=== PATIENT | female | born 1930 | race Caucasian/White ===

== ENCOUNTER 2019-01-20 13:04 | Inpatient (IN) | payer OTHER ==
[~2019-01-20] VITALS: Ht 162.6 cm; Wt 74.8 kg
[2019-01-20 13:10] VITALS: BP 140/120
[2019-01-20 13:47] LABS: ABSOLUTE BASOPHILS 0.1 thou/uL (0.0-0.2); ABSOLUTE EOSINOPHILS 0.3 thou/uL (0.0-0.7); ABSOLUTE LYMPHOCYTES 1.8 thou/uL (0.8-5.3); ABSOLUTE MONOCYTES 0.5 thou/uL (0.0-1.2); ABSOLUTE NEUTROPHILS 6.5 thou/uL (1.6-8.1); BASOPHILS 1.2 %; EOSINOPHILS 3.2 %; HEMOGLOBIN 14.4 gm/dL (12.0-15.0); LYMPHOCYTES 19.3 %; MCH 30.8 pg (26.0-34.0); MCHC 33.4 g/dL (28.0-37.0); MCV 92.2 fL (80.0-100.0); MONOCYTES 5.8 %; NUCLEATED RBCS 0 /100WBC; PLATELET COUNT* 311 thou/uL (150-400); POLYS 70.5 %; RBC 4.67 mil/uL (4.20-5.00); RDW-CV 14.9 % (10.5-14.5); WBC 9.2 thou/uL (4.0-11.0)
[2019-01-20 13:56] LABS: ANION GAP 10 mmol/L (7-16); BUN 14 mg/dL (7-18); CALCIUM 9.4 mg/dL (8.5-10.1); CHLORIDE 105 mmol/L (98-107); CO2 31 mmol/L (21-32); CREATININE 0.9 mg/dL (0.6-1.3); GLUCOSE 106 mg/dL (70-99); SODIUM 146 mmol/L (136-145)
[2019-01-20 13:59] LABS: POTASSIUM 2.7 mmol/L (3.5-5.1)
[2019-01-20 14:14] LABS: ALBUMIN 3.5 g/dL (3.4-5.0); ALKALINE PHOSPHATASE 120 U/L (46-116); NT-PRO BRAIN NAT PEPTIDE 322 pg/mL (<300); SGOT 22 U/L (15-37); SGPT 23 U/L (30-65); TOTAL BILIRUBIN 0.5 mg/dL (<0.1-1.0); TOTAL PROTEIN 7.1 g/dL (6.4-8.2); TROPONIN-I LEVEL <0.06 ng/mL (<0.06)
[2019-01-20 15:46] VITALS: BP 142/62
[2019-01-20 16:45] VITALS: BP 159/79
--- NOTE | 2019-01-20 17:35 | NUR ---
PATIENT ARRIVED FROM ER THIS EVENING PER CART WITH A HISTORY OF FREQUENT COUGH AND SOA. PATIENT IS ALERT ORIENTED TO PERSON AND YEAR. HER FAMILY IS IN AT THE BEDSIDE. PATIENT PLACED ON TELE MONITOR. ORIENTED TO ROOM AND PROCEDURES. BED ALARM PLACED ON. PATIENT EDUCATED ON FALL PRECAUTIONS. TELE SHOWS SR WITH PVCS. IV POTASSIUM REPLACEMENT CONTINUED FROM ER. DINNER ORDERED FOR PATIENT. PATIENT REPORTS A HISTORY OF ETOH INTAKE. WILL CONTINUE TO MONITOR PATIENT SAFETY. CALL LIGHT IS IN REACH.
[2019-01-20] MEDS ORDERED: AMLODIPINE BESY10 MG PO (17:47)
[2019-01-20] MEDS ORDERED: LOSARTAN POTASS50 MG PO (17:49)
[2019-01-20] MEDS ORDERED: ARIMIDEX1 MG PO (17:52)
[2019-01-20] MEDS ORDERED: ZOLOFT100 MG PO (17:53)
[2019-01-20] MEDS ORDERED: LIPITOR40 MG PO (17:54)
[2019-01-20] MEDS ORDERED: UNICOMPLEX M TA1 TA1 PO (17:55)
[2019-01-20 20:00] VITALS: BP 175/75
[2019-01-21] VITALS: BP 190/87
[2019-01-21 04:00] VITALS: BP 125/85; BP 170/84
--- NOTE | 2019-01-21 05:02 | NUR ---
ASSUMED PT CARE AT APPROX 1930. PT IS AWAKE AND ORIENTED X3-4, FORGETFUL AT TIMES. PROFESSOR OF LEGAL STUDIES IN PLACE TRACING SR/SB. ASSESSMENT DONE AND CHARTED.ELECTROLYTE REPLETION IN PROGRESS. PT DENIES PAIN OF THIS SHIFT. CALL LIGHT WITHIN REACH. FALL PRECAUTIONS IN PLACE. HOURLY ROUNDING DONE FOR PT SAFETY.
[2019-01-21 05:31] LABS: ABSOLUTE BASOPHILS 0.1 thou/uL (0.0-0.2); ABSOLUTE EOSINOPHILS 0.1 thou/uL (0.0-0.7); ABSOLUTE LYMPHOCYTES 1.3 thou/uL (0.8-5.3); ABSOLUTE MONOCYTES 0.6 thou/uL (0.0-1.2); ABSOLUTE NEUTROPHILS 9.1 thou/uL (1.6-8.1); BASOPHILS 0.6 %; EOSINOPHILS 0.7 %; HEMATOCRIT 39.2 % (37.0-47.0); HEMOGLOBIN 12.9 gm/dL (12.0-15.0); LYMPHOCYTES 11.8 %; MCH 30.5 pg (26.0-34.0); MCV 92.3 fL (80.0-100.0); MONOCYTES 5.6 %; MPV 9.2 fl. (7.2-11.1); NUCLEATED RBCS 0 /100WBC; PLATELET COUNT* 315 thou/uL (150-400); POLYS 81.3 %; RBC 4.25 mil/uL (4.20-5.00); RDW-CV 14.9 % (10.5-14.5); WBC 11.1 thou/uL (4.0-11.0)
[2019-01-21 05:38] LABS: CALCIUM 8.7 mg/dL (8.5-10.1); CREATININE 0.8 mg/dL (0.6-1.3); MAGNESIUM 2.1 mg/dL (1.8-2.4)
[2019-01-21 09:32] VITALS: BP 159/76
[2019-01-21 11:13] VITALS: BP 183/78
[2019-01-21 15:32] VITALS: BP 148/54
--- NOTE | 2019-01-21 17:19 | NUR ---
ASSUMED CARE OF PATIENT THIS AM AT 0730. PATIENT IS ALERT AND ORIENTED X 4. SHE DENIES PAIN, DISCOMFORT, AND NAUSEA. TELE SHOWS NSR THIS AM. PATIENT ASSISTED UP TO THE BATHROOM WITH WALKER AND STANDBY ASSIST. SHE WAS KEPT NPO THIS AM FOR CT SCAN. PATIENT TAKEN TO CT PER W/C AND RETURNED TO THE ROOM. POTASSIUM REPLACEMENT CONTINUED TODAY. IV FLUIDS CONTINUED PER ORDER. PATIENT'S APPETITE CONTINUES POOR. RESTING IN BED AT THIS TIME. BED ALARM IS ON AND CALL LIGHT IN IN REACH. HER FAMILY WAS AT THE BEDSIDE OFF AND ON TODAY. HER BLOOD PRESSURE WAS ELEVATED PRIOR TO HER MEDICATION THIS AM.
[2019-01-21 20:00] VITALS: BP 122/60
[2019-01-22] VITALS: BP 147/64
[2019-01-22 04:00] VITALS: BP 166/71
[2019-01-22 04:52] LABS: ABSOLUTE BASOPHILS 0.1 thou/uL (0.0-0.2); ABSOLUTE EOSINOPHILS 0.3 thou/uL (0.0-0.7); ABSOLUTE LYMPHOCYTES 2.1 thou/uL (0.8-5.3); ABSOLUTE MONOCYTES 0.6 thou/uL (0.0-1.2); ABSOLUTE NEUTROPHILS 6.6 thou/uL (1.6-8.1); BASOPHILS 0.7 %; EOSINOPHILS 3.3 %; HEMATOCRIT 33.8 % (37.0-47.0); HEMOGLOBIN 11.3 gm/dL (12.0-15.0); LYMPHOCYTES 21.7 %; MCH 31.4 pg (26.0-34.0); MCHC 33.3 g/dL (28.0-37.0); MCV 94.3 fL (80.0-100.0); MONOCYTES 6.4 %; MPV 9.2 fl. (7.2-11.1); NUCLEATED RBCS 0 /100WBC; PLATELET COUNT* 261 thou/uL (150-400); POLYS 67.9 %; RBC 3.59 mil/uL (4.20-5.00); WBC 9.8 thou/uL (4.0-11.0)
[2019-01-22 05:08] LABS: CALCIUM 7.6 mg/dL (8.5-10.1); CREATININE 0.8 mg/dL (0.6-1.3); POTASSIUM 4.5 mmol/L (3.5-5.1)
--- NOTE | 2019-01-22 05:11 | NUR ---
RECEIVED REPORT AND ASSUMED CARE OF PATIENT APPROX 193. PATIENT HAS BEEN PROGRESSING TOWARDS GOALS: PATIENT STATES SHE "FEELS BETTER COMPARED TO YESTERDAY." NO OBVIOUS SIGNS OF ALCOHOL WITHDRAW. ELECTROLYTES WNL. CALL LIGHT WITHIN REACH
[2019-01-22 08:00] VITALS: BP 148/65
[2019-01-22 12:00] VITALS: BP 169/66
--- NOTE | 2019-01-22 14:44 | EKG ---
[place] [address] ELECTROCARDIOGRAM REPORT Name: SARAHY SHEETS Room: [address] ADM IN 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
--- NOTE | 2019-01-22 14:50 | NUR ---
MET WITH PT AND RAYRAY/ZENIA WHO IS A NURSE. PT LIVES ALONE. STATES SHE STRUGGLES TO GET AROUND, USES WALKER. HASN'T HAD HH. DOES HAVE A AUBREE WHO SHOPS. PT USES SHOWER BENCH ALSO. DOESN'T COOK MUCH. RAYRAY VOICED CONCERNS ABOUT PT BEING ALONE AND RECENT ILLNES, PT AND FAMILY INTERESTED IN SNF AND WANT [facility]. AWAITING THERAPY EVALS. CALLED AND FAXED REFERRAL TO [facility], AWAIT CALL BACK
[2019-01-22 16:00] VITALS: BP 162/51
[2019-01-22 16:36] LABS: URINE BILIRUBIN NEGATIVE (Negative); URINE BLOOD NEGATIVE (Negative); URINE CLARITY CLOUDY; URINE COLOR YELLOW; URINE GLUCOSE-RANDOM NEGATIVE (Negative); URINE KETONES NEGATIVE (Negative); URINE LEUKOCYTES-REFLEX 1+ (Negative); URINE PROTEIN TRACE (Negative); URINE SPECIFIC GRAVITY 1.025 (1.005-1.030); URINE UROBILINOGEN 0.2 E.U./dl (0.2-1.0)
[2019-01-22 16:37] LABS: URINE NITRITE-REFLEX POSITIVE (Negative)
[2019-01-22 16:57] LABS: SQUAMOUS >10 Many /LPF (0-3)
[2019-01-22 16:58] LABS: BACTERIA-REFLEX >30 Many /HPF (None Seen); URINE WBC-REFLEX 6-15 Few /HPF (0-5)
[2019-01-22 16:59] LABS: HYALINE CASTS 0-3 Few /LPF (None Seen)
[2019-01-22 17:01] LABS: MUCUS 0-3 Light strn/LPF (None Seen)
[2019-01-22 17:02] LABS: CRYSTALS None Seen /LPF (None Seen); URINE RBC None Seen /HPF (0-2)
--- NOTE | 2019-01-22 18:58 | NUR ---
ASSUMED PT CARE REPORT RECEIVED FROM NURSE. PT IS AOX4. FORGETFUL. ON RA. IV FLUID STOPPED. NO COMPLAINT FROM PT. NURSE INFORMED PT FAMILY ABOUT PROCESS OF CARE. OT EVALUATION PERFORMED IN PT ROOM. URINE SAMPLE SENT TO LAB ORDERED. ONCOLOGY CONSULTED. PT UP WITH ASSISTANCE AND WALKER. FALL PRECAUTION IN PLACE. WILL CONTINUE TO MONITOR
[2019-01-22 20:00] VITALS: BP 141/56
[2019-01-23] VITALS: BP 179/73
[2019-01-23 04:00] VITALS: BP 163/70
[2019-01-23 05:15] LABS: ABSOLUTE BASOPHILS 0.1 thou/uL (0.0-0.2); ABSOLUTE EOSINOPHILS 0.3 thou/uL (0.0-0.7); ABSOLUTE LYMPHOCYTES 1.5 thou/uL (0.8-5.3); ABSOLUTE MONOCYTES 0.7 thou/uL (0.0-1.2); ABSOLUTE NEUTROPHILS 7.4 thou/uL (1.6-8.1); BASOPHILS 0.5 %; EOSINOPHILS 3.2 %; HEMATOCRIT 38.4 % (37.0-47.0); HEMOGLOBIN 12.5 gm/dL (12.0-15.0); LYMPHOCYTES 14.8 %; MCH 30.6 pg (26.0-34.0); MCHC 32.5 g/dL (28.0-37.0); MCV 94.2 fL (80.0-100.0); MONOCYTES 7.2 %; MPV 9.3 fl. (7.2-11.1); NUCLEATED RBCS 0 /100WBC; PLATELET COUNT* 264 thou/uL (150-400); POLYS 74.3 %; RBC 4.08 mil/uL (4.20-5.00); RDW-CV 14.8 % (10.5-14.5); WBC 9.9 thou/uL (4.0-11.0)
[2019-01-23 05:29] LABS: CALCIUM 8.2 mg/dL (8.5-10.1); CREATININE 0.8 mg/dL (0.6-1.3)
--- NOTE | 2019-01-23 05:32 | NUR ---
PT CARE ASSUMED AT 1930. SAT MAINTAINED IN RA. ALERT AND ORIENTED X4, FORGETFUL AT TIMES. PT HAD FREQUENCY AND URGENCY OF URINATION. CALL LIGHT WITHIN REACH AND BED IN LOW POSITION. PT IS IMPULSIVE, EDUCATION GIVEN, NEEDS REINFORCEMENT. DENIES PAIN AND SOB. HOURLY ROUNDING DONE FOR PT SAFETY.
[2019-01-23 08:00] VITALS: BP 191/75
--- NOTE | 2019-01-23 09:35 | CON ---
[address] [address] CONSULTATION Name: KORTNEYSARAHYMINERVA GOMES Room: [address] IN .R.#: [id number] Admission: 01/20/19 Attend Phys: Yandel Craig MD Discharge: Date of : [birth year] Report #: [id number] THIS REPORT FOR: //name// [facility] DATE OF SERVICE: 01/22/2019 ONCOLOGY CONSULTATION REASON FOR CONSULTATION: Incidental breast lesion. SUBJECTIVE: An 88-year-old female who has been diagnosed with breast cancer around 7 years ago, received a lumpectomy; however, the patient did not receive chemotherapy. She is a poor historian, was admitted because of weight loss, severe hypokalemia, no fever or chills. Workup at the hospital including CT scan of the chest, abdomen and pelvis showed 8 mm nodule at 9 o'clock position at the right breast. There are 2 additional smaller circumscribe masses within the central breast measuring 5 mm. There was also 9 mm left adrenal nodule, mild perinephric stranding, nonobstructing 3 mm left renal calculus, multiple renal cysts. However, there is no evidence of metastatic disease. The patient had a mammogram around to 2 years ago. REVIEW OF SYSTEMS: All systems reviewed. It was negative except the above. PAST MEDICAL HISTORY: Dyslipidemia, hypertension, depression. MEDICATIONS: Per admission list and reviewed. She is currently on Arimidex 1 mg p.o. daily. ALLERGIES: No known allergies. FAMILY HISTORY: Noncontributory. SOCIAL HISTORY: No smoking; however, the patient drinks around one drink a day. PHYSICAL EXAMINATION: VITAL SIGNS: Today, temperature 36.7, pulse 68, respirations 19, blood pressure is 148/65. SpO2 was 95% on room air. GENERAL: The patient was sitting in chair, was not in acute distress. LUNGS: Clear to auscultations bilaterally. HEART: Regular rate and rhythm. S1, S2 within normal limits. ABDOMEN: Soft, nontender. BREAST EXAMINATION: I was not able to palpate any masses [place] [address] CONSULTATION Name: SARAHY SHEETS Room: [address]#: [id number] Admission: 01/20/19 Attend Phys: Yandel Craig MD Discharge: Date of : [birth year]/26/[birth year] Report #: [id number] LABORATORY DATA: Today, WBC 9.8, hemoglobin 11.3, platelets 261. Sodium is 141, potassium is 4.5, creatinine 0.8, calcium 7.6. IMAGING: As mentioned above. ASSESSMENT AND PLAN: An 88-year-old female who has been evaluated and incidental findings with a scan showed an 8 mm right breast mass at 9 o'clock in addition to small 5 mm central right breast areas. RECOMMENDATIONS: Bilateral diagnostic mammogram with ultrasound. I discussed these findings with the patient and I have recommended a biopsy if needed. Since the patient is living independently at home by herself; however, the patient stated that she does not want any biopsies. She has been already on adjuvant endocrine treatment. We will followup the mammogram results. <ELECTRONICALLY SIGNED> By: Saul Brooke MD 01/23/19 0935 1659 0000Moravin Brooke MD /nt
[2019-01-23 11:30] VITALS: BP 194/77
[2019-01-23] MEDS ORDERED: FOLIC ACID1 MG PO (11:43)
[2019-01-23] MEDS ORDERED: VITAMIN B-1100 M1 PO (11:48)
[2019-01-23] MEDS ORDERED: CARVEDILOL3.125 MG PO (11:49)
[2019-01-23] MEDS ORDERED: CEFUROXIME500 MG PO (11:50)
[2019-01-23 11:51] VITALS: BP 191/75
[2019-01-23 11:58] VITALS: BP 191/75
--- NOTE | 2019-01-23 13:00 | NUR ---
ORDERS NOTED FOR DC TO SNF. SPOKE WITH [facility], THEY HAVE INSURANCE AUTH AND CAN ACCEPT PT TODAY. SHE SET UP W/C VAN FOR 3-330. CHART COPIED, ORDERS FAXED AND RN HAS NUMBER TO CALL REPORT. UPDATED PT AND GRDDTR BY PHONE
--- NOTE | 2019-01-23 16:17 | NUR ---
ASSUMED PT CARE REPORT GIVEN. PT IS AOX4 FORGETFUL . ON RA. SR PVCS ON SLOT FLOORPERSON. SKIN IS INTACT. UA POSITIVE FOR UTI. ROCEPHIN GIVEN. REPORT GIVEN TO [facility]. PT LEFT FLOOR ACCOMPANIED BY TRANSPORTER FROM THE [facility] IN A WHEELCHAIR.
== END 2019-01-23 15:15 | DRG 690 ==
LOC: M.ERS 13:04 → M.2W 14:43 → M.TBA-ER 14:43 → M.2W 15:55
PROVIDERS: Emergency Medicine Emergency Medical Services; ADMIT Internal Medicine
DX: N10 Acute pyelonephritis (principal); E46 Unspecified protein-calorie malnutrition; F10.20 Alcohol dependence, uncomplicated; E87.6 Hypokalemia; N63.0 Unspecified lump in unspecified breast; E83.42 Hypomagnesemia; E78.5 Hyperlipidemia, unspecified; I10 Essential (primary) hypertension; F32.9 Major depressive disorder, single episode, unspecified; Z85.3 Personal history of malignant neoplasm of breast; Z92.21 Personal history of antineoplastic chemotherapy; Z68.28 Body mass index [BMI] 28.0-28.9, adult

== ENCOUNTER 2019-04-05 10:42 | Inpatient (IN) | payer OTHER ==
[~2019-04-05] VITALS: Ht 157.5 cm; Wt 72.6 kg
[~2019-04-05 10:42] MED LIST: AMLODIPINE BESY10 MG PO; ARIMIDEX1 MG PO; CARVEDILOL3.125 MG PO; CEFUROXIME500 MG PO; FOLIC ACID1 MG PO; LIPITOR40 MG PO; LOSARTAN POTASS50 MG PO; UNICOMPLEX M TA1 TA1 PO; VITAMIN B-1100 M1 PO; ZOLOFT100 MG PO
[2019-04-05 10:55] VITALS: BP 137/85
[2019-04-05] MEDS ORDERED: CLARITIN10 MG PO (11:03)
[2019-04-05] MEDS ORDERED: TESSALON PERLE100 MG PO (11:03)
[2019-04-05] MEDS ORDERED: FLONASE 0.05%50 MCG NARES (11:03)
[2019-04-05] MEDS ORDERED: PRILOSEC OTC20 MG PO (11:04)
[2019-04-05] MEDS ORDERED: SINGULAIR 10 MG10 M1 PO (11:04)
[2019-04-05 11:42] LABS: ABSOLUTE BASOPHILS 0.1 thou/uL (0.0-0.2); ABSOLUTE EOSINOPHILS 0.2 thou/uL (0.0-0.7); ABSOLUTE LYMPHOCYTES 1.8 thou/uL (0.8-5.3); ABSOLUTE MONOCYTES 0.7 thou/uL (0.0-1.2); ABSOLUTE NEUTROPHILS 6.3 thou/uL (1.6-8.1); BASOPHILS 0.7 %; EOSINOPHILS 2.5 %; HEMATOCRIT 36.5 % (37.0-47.0); HEMOGLOBIN 12.1 gm/dL (12.0-15.0); LYMPHOCYTES 19.5 %; MCH 29.8 pg (26.0-34.0); MCHC 33.3 g/dL (28.0-37.0); MCV 89.4 fL (80.0-100.0); MONOCYTES 7.8 %; MPV 9.1 fl. (7.2-11.1); NUCLEATED RBCS 0 /100WBC; PLATELET COUNT* 255 thou/uL (150-400); POLYS 69.5 %; RBC 4.08 mil/uL (4.20-5.00); RDW-CV 13.6 % (10.5-14.5); WBC 9.1 thou/uL (4.0-11.0)
[2019-04-05 11:56] LABS: CALCIUM 9.3 mg/dL (8.5-10.1); POTASSIUM 4.7 mmol/L (3.5-5.1)
[2019-04-05 12:01] LABS: ALBUMIN 3.7 g/dL (3.4-5.0); TOTAL BILIRUBIN 0.5 mg/dL (<0.1-1.0); TOTAL PROTEIN 6.4 g/dL (6.4-8.2)
[2019-04-05 12:14] LABS: APTT 22.9 Seconds (25.0-31.3); PROTIME 10.3 Seconds (9.20-11.50)
--- NOTE | 2019-04-05 14:00 | EKG ---
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: : 1930 Requested By: José Luis Whitney Order Number: [id number] MD: Spencer Doyle Measurements Intervals [place] Rate: 63 P: 75 WV: 204 QRS: 35 QRSD: 84 T: 78 QT: 421 QTc: 431 Interpretive Statements Sinus rhythm Compared to ECG 01/20/2019 13:17:24 Right ventricular hypertrophy no longer present Electronically Signed On 04-05-2019 14:00:27 BOBTAIL DRIVER by Spencer Doyle [email or web address] <ELECTRONICALLY SIGNED> By: Spencer Doyle MD, [facility] 04/05/19 1400 1138 1138 Spencer Doyle MD, [facility] /EPI
--- NOTE | 2019-04-05 14:48 | NUR ---
CALLED CONSULT FOR DR PERDUE, LEFT MESSAGE FOR DR PERDUE'S OFFICE FOR ROUTINE CONSULT.
[2019-04-05 15:30] LABS: URINE BILIRUBIN NEGATIVE (Negative); URINE BLOOD NEGATIVE (Negative); URINE CLARITY CLEAR; URINE COLOR YELLOW; URINE GLUCOSE-RANDOM NEGATIVE (Negative); URINE KETONES NEGATIVE (Negative); URINE LEUKOCYTES-REFLEX 2+ (Negative); URINE NITRITE-REFLEX POSITIVE (Negative); URINE PROTEIN NEGATIVE (Negative); URINE UROBILINOGEN 0.2 E.U./dl (0.2-1.0)
[2019-04-05 15:44] LABS: SQUAMOUS 0-3 Few /LPF (0-3)
[2019-04-05 15:45] LABS: BACTERIA-REFLEX >30 Many /HPF (None Seen); CASTS None Seen /LPF (None Seen); CRYSTALS None Seen /LPF (None Seen); URINE RBC 0-2 Rare /HPF (0-2)
[2019-04-05 16:07] VITALS: BP 155/62
--- NOTE | 2019-04-05 16:11 | NUR ---
PT TO BOARD IN ED AT THIS TIME. PT ADMISSION PROFILE COMPLETE AND BOARDED ASSESSMENT COMPLETED WELL. PT STATED SHE IS A DNR, DR HANCOCK NOTIFIED AND DNR BAND TO BE PLACED ON PT.
--- NOTE | 2019-04-05 18:17 | NUR ---
PT ARRIVED TO FLOOR ABOUT 1800. PT STABLE. IV PATENT. UP WITH 1 USING GAITBELT AND WALKER. RECENT FALLS AT HOME. ON FALL PRECAUTIONS. FAMILY IN ROOM. REGULAR DIET. DENIED PAIN. DENIED N/V. ADMISSION COMPLETE. CALL LIGHT WITHIN REACH. WILL CONTINUE TO MONITOR.
[2019-04-05 18:59] VITALS: BP 155/62
[2019-04-05 20:00] VITALS: BP 157/72
--- NOTE | 2019-04-06 07:07 | NUR ---
Oriented x 3-4 maybe a little forgetful. She is up with standby assist and walker to the bathroom. She has been fairly steady but has been falling at home. Vitals are stable. Her UA has greater than 30,[address] Rod ordered Rocephin IV daily. She has slept well.
[2019-04-06 08:30] VITALS: BP 151/59
--- NOTE | 2019-04-06 14:07 | NUR ---
Nutrition: Pt admitted for UTI. Albumin 3.7. Regular diet ordered. Wt: 160#. Ambulates with help. Seen for nsg risk 2 points, but no wt loss, per [facility]. No N/V. Pt appears nutritionally stable at this time.
--- NOTE | 2019-04-06 15:03 | NUR ---
cm completed initial assessment to discuss d/c planning. pt a&ox3, pt lives at home alone. has private duty care provided 3x/wk to help w/cleaning and grocery shopping. pt states she is independent w/adls, cooking. pt states children and grandchildren are supportive and look in after her. pt has walker and w/c. pt states she is active, likes to go and play cards w/friends. pt no longer drives b/c her children didnt think it was a good idea anymore. pt has hx w/SMV, but pt states she isnt interested in going to SNF; instead she wants to return home. states she is okay w/HH. cm to cont to follow to assist as needed.
--- NOTE | 2019-04-06 18:52 | NUR ---
PATIENT ALERT AND ORIENTED X 4. VITAL SIGNS STABLE ON ROOM AIR. UP WITH ASSIST OF ONE TO THE BATHROOM. IV PATENT AND SALINE LOCKED. ANTIBIOTIC GIVEN PER MAR. DENIES PAIN AND NAUSEA AT THIS TIME. FALL PRECAUTIONS IN PLACE AND BED ALARM ON. HOURLY ROUNDS MAINTAINED THROUGHOUT THE SHIFT. CALL LIGHT WITHIN REACH. NURSING WILL CONTINUE TO MONITOR.
[2019-04-06 22:10] VITALS: BP 146/54
--- NOTE | 2019-04-07 05:52 | NUR ---
PT ALERT AND ORIENTED, VSS RA. UP TO THE BATHROOM WITH STANDBY ASSIST WITH WALKER. BED ALARM ON FOR SAFETY. NO C/O PAIN. WILL CONTINUE TO MONITOR.
[2019-04-07 07:25] VITALS: BP 147/76
[2019-04-07 16:00] VITALS: BP 150/70
--- NOTE | 2019-04-07 16:45 | NUR ---
PT REMAINED ALERT AND ORIENTED AND FORGETFUL. PT RESTING IN BED. 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 FALL RISK PRECAUTIONS IN PLACE. HOURLY ROUNDING COMPLETED. WILL CONTINUE TO MONITOR.
[2019-04-07 20:00] VITALS: BP 154/63
[2019-04-08 04:22] LABS: HEMATOCRIT 35.6 % (37.0-47.0); HEMOGLOBIN 11.9 gm/dL (12.0-15.0); MCH 29.8 pg (26.0-34.0); MCHC 33.4 g/dL (28.0-37.0); MCV 89.1 fL (80.0-100.0); MPV 9.7 fl. (7.2-11.1); RBC 3.99 mil/uL (4.20-5.00); RDW-CV 14.1 % (10.5-14.5); WBC 9.1 thou/uL (4.0-11.0)
--- NOTE | 2019-04-08 05:19 | NUR ---
PT ALERT AND ORIENTED, FORGETFUL AT TIMES. BED ALARM ON FOR SAFETY. UP WITH STANDBY ASSIST. VSS RA. MEDS GIVEN ORDERED. NO C/O PAIN. HOURLY ROUNDING COMPLETED. WILL CONTINUE TO MONITOR.
[2019-04-08 07:30] VITALS: BP 159/60
[2019-04-08 17:03] VITALS: BP 185/90
--- NOTE | 2019-04-08 17:04 | NUR ---
PT REMAINED ALERT AND ORIENTED AND FORGETFUL. PT RESTING IN BED. FALL RISK PRECAUTIONS IN PLACE. HOURLY ROUNDING COMPLETED. WILL CONTINUE TO MONITOR.
[2019-04-08 21:30] VITALS: BP 146/66
--- NOTE | 2019-04-09 05:18 | NUR ---
VSS RA. MEDS GIVEN ORDERED. PT UP TO THE BATHROOM WITH STANDBY ASSIST. BED ALARM ON FOR SAFETY. READING/SLEEPING ON HOURLY ROUNDINGS. WILL CONTINUE TO MONITOR.
[2019-04-09 07:20] VITALS: BP 152/73
--- NOTE | 2019-04-09 10:10 | NUR ---
PT.'S FAMILY WANTING PT TO GO TO SNF. THEY WOULD LIKE REFERRAL MADE TO [facility] [place]. PT.WALKING LONG DISTANCES WITH THERAPY. UNSURE IF INSURANCE WILL AUTH SNF OR NOT. SPOKE WITH [facility]. SHE SAID TO SEND IT AND THEY WILL REVIEW. FAXED REFERRAL TO HER .
[2019-04-09 10:59] VITALS: BP 152/73
--- NOTE | 2019-04-09 16:19 | NUR ---
PT REMAINED ALERT AND ORIENTED. PT RESTING IN BED. FALL RISK PRECAUTIONS IN PLACE. HOURLY ROUNDING COMPLETED. WILL CONTINUE TO MONITOR.
--- NOTE | 2019-04-09 16:30 | NUR ---
[facility] AND SAID INSURANCE HAS DENIED INSURANCE AUTH. PT.DOING TOO WELL WITH THERAPY. DESI SPOKE WITH PT. SHE SAID THAT IS JUST FINE BUT YOU SHOULD CALL MY SON. DESI DISCUSSED WITH . CALLED SON NITHIN.HE WAS VERY UPSET AND SAID THERE IS NO WAY PT.SHOULD BE AT HOME ALONE. SHE FALLS FREQUENTLY. SHE REFUSES HH WHEN THEY COME. SHE SITS ON COUCH ALL DAY AND DOESN'T EAT RIGHT OR DRINK WATER LIKE SHE SHOULD. SHE WILL NOT PUSH HER LIFE ALERT BUTTON IF SHE FALLS,SHE CALLS HER FAMILY INSTEAD. EXPLAINED THAT PT.DOES SOUND LIKE SHE DOES NOT NEED TO BE ALONE. OFFERED SUGGESTIONS OF LTC, ASSISTED LIVING, IN CREASING HER CARE GIVERS, ETC. HE SAID HE COULD NOT COME TO GET HER TONIGHT BUT WANTED CM TO CALL HIS DAUGHTGERZENIA. CALL TO ZENIA. 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 SHE LOVES HER BUT CANNOT TAKE CARE OF HER. UNSAFE DISCHARGE PLAN FOR THIS EVENING. DESI INA ARRANGE HH TOMORROW AND DISCUSS WITH PT./SON. ZENIA SAID PT.HAS A LTC [place] POLICY. SHE IS GOING TO TRY TO FIND LTC FOR HER BUT UNDERSTANDS SHE CANNOT STAY IN HOSPTIAL UNTIL THAT IS ACCOMPLISHED. JOJO HARE NOTIFIED.
[2019-04-09 21:20] VITALS: BP 147/80
--- NOTE | 2019-04-10 07:02 | NUR ---
PATIENT HAS SLEPT WELL THROUGHOUT THE NIGHT. VSS ON RA. NO C/O PAIN. MEDICATIONS GIVEN ORDERED AND CHARTED. ASSESSMENT CHARTED. IV IN LEFT AC-SL. FALL PRECAUTIONS IN PLACE AND HOURLY ROUNDS MADE. WILL CONTINUE WITH PLAN OF CARE AND NURSING TO MONITOR.
[2019-04-10 07:48] VITALS: BP 148/80
[2019-04-10 15:51] VITALS: BP 150/66
--- NOTE | 2019-04-10 16:00 | NUR ---
PER [facility] ,THEY GO TO [place]/PT.S ADDRESS AND TAKE HER INSURANCE. THEY WILL ACCEPT HER TO SERVICE. FAXED H&P,DISCHARGE SUMMARY, ORDERS, MED LIST ,FACE TO FACE FORM AND FACE SHEET TO HER [phone]. INFORMATION PUT IN DISCHARGE INSTRUCTIONS. SON TO PICK PT. UP ABOUT 1700.
--- NOTE | 2019-04-10 16:40 | NUR ---
PT DISCHARGED AT 1635 TO HOME WITH HOME HEALTH BY WHEELCHAIR WITH SON AND NURSING STAFF. IV OUT. PT STABLE UPON DISCHARGE. PERSONAL BELONGINGS SENT WITH PT. NO PAPER SCRIPTS. HOME HEALTH SET UP.
--- NOTE | 2019-04-16 16:43 | NUR ---
CALL FROM SON,BRIT,ASKING WHEN HER THERAPY PROGRAM WAS GOING TO START. EXPLAINED TO HIM I HAD SET UP HH THE DAY SHE WAS DISCHARGED. HE SAID NO ONE HAS COME OUT. CALLED [facility] TO DISCUSS. SHE SAID SHE HAS LEFT 4 MESSAGES FOR SON AND HE HAS NOT CALLED BACK. SHE SAID SHE WOULD CALL HIM RIGHT NOW TO DISCUSS A TIME WHEN THEY CAN COME OUT.
== END 2019-04-10 16:35 | disposition home health service (06) | DRG 552 ==
LOC: M.ERS 10:42 → M.TBA-ER 12:32 → M.ORTHSURG 12:32
PROVIDERS: Family Medicine; ADMIT Internal Medicine
DX: M48.061 Spinal stenosis, lumbar region without neurogenic claudication (principal); N39.0 Urinary tract infection, site not specified; I10 Essential (primary) hypertension; E78.00 Pure hypercholesterolemia, unspecified; F32.9 Major depressive disorder, single episode, unspecified; E03.9 Hypothyroidism, unspecified; E04.1 Nontoxic single thyroid nodule; M19.90 Unspecified osteoarthritis, unspecified site; G89.29 Other chronic pain; M48.02 Spinal stenosis, cervical region; Z82.49 Family history of ischemic heart disease and other diseases of the circulatory system; Z85.3 Personal history of malignant neoplasm of breast; Z80.3 Family history of malignant neoplasm of breast; Z79.899 Other long term (current) drug therapy

== ENCOUNTER → 2019-05-07 | Outpatient (CLI) | payer OTHER ==
[~2019-05-07] MED LIST changes: +CLARITIN10 MG PO; +FLONASE 0.05%50 MCG NARES; +PRILOSEC OTC20 MG PO; +SINGULAIR 10 MG10 M1 PO; +TESSALON PERLE100 MG PO
== END ==
LOC: M.RAD 01:15
DX: R13.12 Dysphagia, oropharyngeal phase (principal)

== ENCOUNTER 2020-03-30 15:32 | Inpatient (IN) | payer OTHER ==
[~2020-03-30] VITALS: Ht 165.1 cm; Wt 103.4 kg
[2020-03-30 15:33] VITALS: BP 148/70
[2020-03-30] MEDS ORDERED: TYLENOL325 MG PO (15:42)
[2020-03-30] MEDS ORDERED: LEVO-T25 MCG PO (15:44)
[2020-03-30] MEDS ORDERED: LIDODERM1 EACH TOP (15:45)
[2020-03-30] MEDS ORDERED: DESYREL150 MG PO (15:45)
[2020-03-30] MEDS ORDERED: VENLAFAXINE HCL75 M2 PO (15:46)
[2020-03-30] MEDS ORDERED: ONDANSETRON ODT4 MG PO (15:46)
[2020-03-30 16:01] LABS: ABSOLUTE BASOPHILS 0.1 thou/uL (0.0-0.2); ABSOLUTE EOSINOPHILS 0.3 thou/uL (0.0-0.7); ABSOLUTE LYMPHOCYTES 2.3 thou/uL (0.8-5.3); ABSOLUTE MONOCYTES 0.9 thou/uL (0.0-1.2); ABSOLUTE NEUTROPHILS 8.2 thou/uL (1.6-8.1); BASOPHILS 0.5 %; EOSINOPHILS 2.7 %; HEMATOCRIT 37.6 % (37.0-47.0); HEMOGLOBIN 12.2 gm/dL (12.0-15.0); LYMPHOCYTES 19.1 %; MCH 28.4 pg (26.0-34.0); MCHC 32.4 g/dL (28.0-37.0); MCV 87.7 fL (80.0-100.0); MONOCYTES 7.9 %; MPV 7.8 fl. (7.2-11.1); NUCLEATED RBCS 0 /100WBC; PLATELET COUNT* 281 thou/uL (150-400); POLYS 69.8 %; RBC 4.29 mil/uL (4.20-5.00); RDW-CV 13.6 % (10.5-14.5); WBC 11.8 thou/uL (4.0-11.0)
[2020-03-30 16:08] LABS: APTT 22.6 Seconds (25.0-31.3); CALCIUM 9.1 mg/dL (8.5-10.1); CREATININE 0.9 mg/dL (0.6-1.3); POTASSIUM 3.6 mmol/L (3.5-5.1)
[2020-03-30 16:19] LABS: URINE BILIRUBIN NEGATIVE (Negative); URINE BLOOD 2+ (Negative); URINE CLARITY CLOUDY; URINE COLOR YELLOW; URINE GLUCOSE-RANDOM NEGATIVE (Negative); URINE KETONES NEGATIVE (Negative); URINE NITRITE-REFLEX NEGATIVE (Negative); URINE PROTEIN TRACE (Negative); URINE SPECIFIC GRAVITY 1.015 (1.005-1.030); URINE UROBILINOGEN 0.2 E.U./dl (0.2-1.0)
[2020-03-30 16:19] LABS: ALBUMIN 3.1 g/dL (3.4-5.0); TOTAL BILIRUBIN 0.2 mg/dL (<0.1-1.0); TOTAL PROTEIN 6.7 g/dL (6.4-8.2)
[2020-03-30 16:20] LABS: URINE LEUKOCYTES-REFLEX 2+ (Negative)
[2020-03-30 16:30] LABS: SQUAMOUS >10 Many /LPF (0-3)
[2020-03-30 16:31] LABS: BACTERIA-REFLEX >30 Many /HPF (None Seen); CASTS None Seen /LPF (None Seen); CRYSTALS None Seen /LPF (None Seen); MUCUS None Seen strn/LPF (None Seen); URINE RBC 3-10 Few /HPF (0-2)
[2020-03-30 20:27] VITALS: BP 120/68
[2020-03-30 21:00] VITALS: BP 182/85
[2020-03-31 07:30] VITALS: BP 164/78
--- NOTE | 2020-03-31 07:36 | NUR ---
PATIENT ADMITTED TO ROOM 103 FROM THE ER AT APPROXIMATELY 2024. REPORT GIVEN FROM ER NURSE MALCOM. VS-T-99.4, PULSE-107, BP-182/85 AND RESP-24. PATIENT ANXIOUS, FORGETFUL AND CONFUSED AT TIMES. PATIENT IS ALSO A POOR HISTORIAN. PATIENT ORIENTED TO ROOM AND FALL EDUCATION GIVEN AND FALL AGREEMENT SIGNED. PATIENT VERBALIZED UNDERSTANDING. ADMISSION ASSESSMENT CHARTED. NEW IV INSERTED IN LEFT WRIST. IV ABT GIVEN WITHOUT AND ADVERSE SIDE EFFECTS NOTED. KAUFFMAN BAG REPLACED D/T BAG LEAKING RIGHT AFTER BEING BROUGHT UP FROM THE ER. KAUFFMAN TO DEPENDENT DRAINAGE WITH CLOUDY YELLOW URINE OUTPUT AND STRONG ODOR. MEDICATIONS GIVEN ORDERED AND CHARTED. FALL PRECAUTIONS IN PLACE AND HOURLY ROUNDS MADE. WILL CONTINUE WITH PLAN OF CARE AND NURSING TO MONITOR.
--- NOTE | 2020-03-31 10:22 | EKG ---
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: : 1930 Requested By: José Luis Whitney Order Number: [id number] MD: Kiel Lu Measurements Intervals [place] Rate: 88 P: 66 SC: 183 QRS: 10 QRSD: 89 T: 68 QT: 340 QTc: 412 Interpretive Statements Sinus rhythm Atrial premature complexes septal infarct, age indeterminate Compared to ECG 04/05/2019 11:38:51 Atrial premature complex(es) now present Electronically Signed On 03-31-2020 10:22:15 HOG ROOM SUPERVISOR by Kiel Lu [email or web address] <ELECTRONICALLY SIGNED> By: Kiel Lu MD, FACC 03/31/20 1022 1544 1544 Kiel Lu MD, FAC /EPI
[2020-03-31 10:34] LABS: CALCIUM 8.8 mg/dL (8.5-10.1); CREATININE 0.9 mg/dL (0.6-1.3); POTASSIUM 3.9 mmol/L (3.5-5.1)
[2020-03-31 10:37] LABS: MAGNESIUM 1.8 mg/dL (1.8-2.4); PHOSPHORUS* 3.1 mg/dL (2.5-4.9)
--- NOTE | 2020-03-31 12:00 | NUR ---
PT.ALERT. KNEW SHE LIVED AT [facility]. SHE SAID SHE USUALLY USES A WC. SHE CAN TRANSFER WITH [facility]. THEY PROVIDE HER MEALS AND GIVE HER HER MEDICATIONS. SHE NEEDS ASSIST WITH BATHING/DRESSING. CM LEFT A VM WITH SON,NITHIN, TO REURN MY CALL .
--- NOTE | 2020-03-31 15:03 | 2DMMODE ---
[place] [address] 2 D/M-MODE ECHOCARDIOGRAM Name: SARAHY SHEETS Room: [address] IN M.R.#: [id number] Admission: 03/30/20 Attend Phys: Izzy Park, Discharge: Date of : [birth year] Date of Service: 03/31/20 1503 Report #: [id number] THIS REPORT FOR: cc: Nessa Pardo NP, Kathryn C. DO Blick,Kiel Perez MD [facility] ~ APPROVED REPORT Study performed: 03/31/2020 13:32:52 EXAM: Comprehensive 2D, Doppler, and color-flow Echocardiogram Patient Location: Bedside BSA: 2.09 HR: 77 bpm BP: 164/78 mmHg Other Information Study Quality: Fair Technically limited study due to , inability to position patient. Indications Dyspnea 2D Dimensions IVSd: 10.36 (7-11mm) LVOT Diam: 18.29 (18-24mm) LVDd: 42.31 mm PWd: 11.75 (7-11mm) Ascending Ao: 31.01 (22-36mm) LVDs: 27.93 (25-40mm) Aortic Root: 27.12 mm Volumes Left Atrial Volume (Systole) LA ESV Index: 19.30 mL/m2 Aortic Valve AoV Peak Mateo.: 0.99 m/s AO Peak Gr.: 3.95 mmHg LVOT Max P.29 mmHg AO Mean Gr.: 2.56 mmHg LVOT Mean P.16 mmHg LVOT Max V: 0.76 m/s AO V2 VTI: 19.35 cm LVOT Mean V: 0.50 m/s COLLEEN (VTI): 2.66 cm2 LVOT V1 VTI: 19.62 [place] [address] 2 D/M-MODE ECHOCARDIOGRAM Name: SARAHY SHEETS Room: [address] IN .R.#: [id number] Admission: 03/30/20 Attend Phys: Izzy Park, Discharge: Date of : [birth year] Date of Service: 03/31/20 1503 Report #: [id number] Mitral Valve E/A Ratio: 0.61 MV Decel. Time: 222.39 ms MV E Max Mateo.: 0.55 m/s MV PHT: 64.49 ms MVA (PHT): 3.41 cm2 TDI E/Lateral E': 7.86 E/Medial E': 4.58 Medial E' Mateo.: 0.12 m/s Lateral E' Mateo.: 0.07 m/s Pulmonary Valve PV Peak Mateo.: 0.90 m/s PV Peak Gr.: 3.24 mmHg Tricuspid Valve RAP Estimate: 10.00 mmHg TR Peak Gr.: 7.93 mmHg RVSP: 17.93 mmHg PA Pressure: 17.93 mmHg Left Ventricle The left ventricle is normal size. There is normal LV segmental wall motion. There is normal left ventricular wall thickness. Left ventricular systolic function is normal. The left ventricular ejection fraction is within the normal range. LVEF is 55-60%. Grade I - abnormal relaxation pattern. Right Ventricle The right ventricle is normal size. The right ventricular systolic function is normal. Atria The left atrium size is normal. The right atrium size is normal. Aortic Valve The aortic valve is not well visualized. No aortic regurgitation is present. There is no aortic valvular stenosis. Mitral Valve The mitral valve is normal in structure. There is no mitral valve regurgitation noted. No evidence of mitral valve stenosis. Tricuspid Valve The tricuspid valve is normal in structure. [place] [address] 2 D/M-MODE ECHOCARDIOGRAM Name: SARAHY SHEETS Room: [address] [place] ..#: [id number] Admission: 03/30/20 Attend Phys: Izzy Park, Discharge: Date of : [birth year] Date of Service: 03/31/20 1503 Report #: [id number] Pulmonic Valve Pulmonic valve is not well visualized. There is no pulmonic valvular regurgitation. Great Vessels The aortic root is normal in size. IVC is normal in size and collapses >50% with inspiration. Pericardium There is no pericardial effusion. <Conclusion> Left ventricular systolic function is normal. The left ventricular ejection fraction is within the normal range. <ELECTRONICALLY SIGNED> By: Kiel Lu MD, FACC 03/31/20 1503 1503 1503 Kiel Lu MD, FACC /INF
--- NOTE | 2020-03-31 15:50 | NUR ---
A&OX4, FORGETFUL. LUNGS CLEAR ON ROOM AIR, HAS CHRONIC COUGH. HEART TONES REGULAR. +BS X 4 QUADS. LOWER LEGS PINK, SWOLLEN AND WARM TO TOUCH. INDWELLING KAUFFMAN CATH. INTACT AND PATENT OF CLOUDY YELLOW URINE. SALINE LOCK LEFT WRIST INTACT AND PATENT. PEDAL PULSES PRESENT. C/O LOWER LEGS ACHING AND RECEIVED SCHEDULED TYLENOL. WILL CONTINUE TO MONITOR.
[2020-03-31 16:06] VITALS: BP 175/88
[2020-03-31 23:30] VITALS: BP 161/71
[2020-04-01 02:06] LABS: GLYCOHEMOGLOBIN (HGB A1C) 5.4 % (4.8-5.6)
--- NOTE | 2020-04-01 07:33 | NUR ---
PATIENT HAS SLEPT WELL THROUGHOUT THE NIGHT. VSS ON RA, ALTHOUGH BP ELEVATED. MEDICATIONS GIVEN ORDERED AND CHARTED. KAUFFMAN TO DEPENDENT DRAINAGE WITH CLOUDY YELLOW URINE OUTPUT. IV IN LEFT WRIST-SL. IV ABT GIVEN WITHOUT ANY ADVERSE SIDE EFFECTS NOTED. FALL PRECAUTIONS IN PLACE AND HOURLY ROUNDS MADE. WILL CONTINUE WITH PLAN OF CARE AND NURSING TO MONITOR.
--- NOTE | 2020-04-01 09:46 | NUR ---
SPOKE WITH ANGELIQUE/NURSING AT [facility]. SHE SAID PT.NORMALLY CAN TRANSFER TO BY HERSELF. THEY ALWAYS HAVE TO REMIND HER TO KEEP HER LEGS ELEVATED. SHE LIKES TO SLEEP IN THE RECLINER INSTEAD OF BED AT NIGHT. DURING THE DAY SHE WILL EITHER SIT IN OR REGULAR CHAIR AND DOESNT ALWAYS KEEP HER LEGS UP. POSSIBLE DISCHARGE 2-3 DAYS.
--- NOTE | 2020-04-01 17:44 | NUR ---
PT A&OX3, CONFUSED AT TIMES. HX CHRONIC UTI. KAUFFMAN PATENT, YELLOW URINE VISIBLE IN COLLECTION BAG. IV TO L WRIST, PATENT. DRESSING C/D/I. FAMILY UPDATED AT BEDSIDE TODAY. PT UP TO RECLINER THIS SHIFT. PT RESTING IN ROOM AT THIS TIME WITH CALL LIGHT IN REACH. WILL CONTINUE TO MONITOR.
[2020-04-01 20:00] VITALS: BP 169/76
--- NOTE | 2020-04-02 07:28 | NUR ---
PATIENT SLEPT MOST OF THE NIGHT. IV VANC WAS GIVEN ORDERED. KAUFFMAN REMAINS TO DEPENDENT DRAIN. WILL CONTINUE TO MONITOR.
[2020-04-02 07:35] VITALS: BP 170/71
[2020-04-02] MEDS ORDERED: AUGMENTIN 875-1 EACH PO (09:55)
[2020-04-02] MEDS ORDERED: CLOTRIMAZOLE 1%15 G1 TOP (09:55)
--- NOTE | 2020-04-02 12:15 | NUR ---
PT CALLED OUT FROM ROOM AND NURSING STAFF FOUND THIS PT SITTING ON FLOOR BETWEEN BED AND RECLINER. PT DENIES PAIN. FULL ROM OF EXTREMETIES X4. PT HAD BEEN SITTING UP ON BED VISITING WITH JONATHAN 2O MIN PRIOR TO THIS INCIDENT. JONATHAN LEFT ROOM FOR SHORT PERIOD AND PT ATTEMPTED TO TRANSFER INDEPENDENTLY. PT STATES SHE THOUGHT SHE COULD "JUST SCOOT OVER" TO THE RECLINER. PT ASSESSED AND ASSISTED TO RECLINER USING NURSING STAFF X3 AND GAIT BELT. CHAIR ALARM ACTIVATED AND IN RECLINER. PT RE-EDUCATED REGARDING USE OF CALL LIGHT TO REQUEST ASSISTANCE AND NOT ATTEMPTING TO AMB INDEPENDENTLY. PT STATES UNDERSTANDING. FAMILY PRESENT FOR EDUCATION. PHYSICIAN NOTIFIED. ATTEMPTED TO CALL CONTACT ON CHART. JONATHAN UPDATED WHEN HE RETURNED TO THE ROOM A SHORT TIME LATER. PT RESTS IN ROOM WITH CALL LIGHT IN REACH. PT WAITING FOR TRANSPORT TO FACILITY THIS AFTERNOON. WILL CONTINUE TO MONITOR. ROOM A SHORT TIME LATER.
[2020-04-02 12:20] VITALS: BP 150/63
[2020-04-02 15:54] VITALS: BP 149/88
--- NOTE | 2020-04-02 16:26 | NUR ---
NOTIFIED NURSING,KARUNA MERINO THAT PT.FELL TODAY,NO INJURY. PT HAS DISCHARGE ORDERS FOR TODAY. SHE HAD ME SPEAK WITH D.O.N. SHE SAID PT.COULD COME BACK SHE FALLS THERE TOO. INFORMED HER SHE HAS HH ORDERS. THEY WILL LET P.T. COME IN. PT.USED [facility] PREVIOUSLY AND SHE WOULD LIKE ME TO SET IT UP. FAXED DISCHARGE ORDERS,H&P TO [facility] [phone]. PT.NEEDED RAPID COVID TEST PRIOR TO COMING. DONE AND IS NEG. WILL PUT RESULTS IN PACKET. CM CALLED IN NEW PRESCRIPTIONS FOR AUGMENTIN AND CLOTRIMAZOLE 1% OINTMENT WRITTEN TO [facility] [phone][facility] PHARMACY PROVIDER,PER D.O.N. REQUEST. 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 GRANDSON SAID HE WIILL CALL HIS DAD,NITHIN TO LET HIM KNOW. CHART COPIED TO GO WITH PT.
[2020-04-02 17:19] VITALS: BP 149/88
--- NOTE | 2020-04-02 17:40 | NUR ---
PT A&OX3-4. CAN BE FORGETFUL/CONFUSED AT TIMES. IV TO L WRIST DC'D PRIOR TO THIS PT LEAVING UNIT. THIS NURSE ATTEMPTED TO CALL REPORT TO KARUNA JACKSON. NO ANSWER/NO VM FOR MESSAGE. KAUFFMAN PATENT, YELLOW URINE OBSERVED IN COLLECTION BAG. PT REMAINS ON ROOM AIR, SAT 94%. PT CONTINUES TO DENY ANY PAIN AT THIS TIME. PT TRANSFERRED FROM RECLINER TO WITH STAFF X2 AND GAIT BELT. PT TRANSFERRED TO FACILITY BY VAN. PAPERWORK WITH ENDLESS STEAMER TENDER/TRANSPORTER. PERSONAL BELONGINGS WITH PT.
== END 2020-04-02 17:40 | disposition home health service (06) | DRG 603 ==
LOC: M.ERS 15:32 → M.TBA-ER 16:33 → M.ORTHSURG 16:33
PROVIDERS: Family Medicine; Internal Medicine; ADMIT Internal Medicine; ATTEND Internal Medicine
DX: L03.116 Cellulitis of left lower limb (principal); N39.0 Urinary tract infection, site not specified; R65.10 Systemic inflammatory response syndrome (SIRS) of non-infectious origin without acute organ dysfunction; L03.115 Cellulitis of right lower limb; L30.4 Erythema intertrigo; M48.00 Spinal stenosis, site unspecified; F41.9 Anxiety disorder, unspecified; F32.9 Major depressive disorder, single episode, unspecified; I10 Essential (primary) hypertension; M19.90 Unspecified osteoarthritis, unspecified site; C50.919 Malignant neoplasm of unspecified site of unspecified female breast; Z20.828 Contact with and (suspected) exposure to other viral communicable diseases; Z79.899 Other long term (current) drug therapy